=== PATIENT | male | born 1985 | race Caucasian/White ===

== ENCOUNTER 2017-11-20 13:07 | Emergency (ER) | payer OTHER ==
[~2017-11-20] VITALS: Ht 175.3 cm; Wt 70.8 kg
[2017-11-20 13:11] VITALS: BP 121/72
[2017-11-20] MEDS ORDERED: KETOROLAC TROMETHAMINE INJ 30 MG/ML VIAL ONE (13:28)
[2017-11-20] MEDS ORDERED: METOCLOPRAMIDE HCL 10 MG/2 ML VIAL ONE (13:28)
[2017-11-20] MEDS ORDERED: diphenhydrAMINE HCL 50 MG/ML VIAL ONE (13:28)
[2017-11-20] MEDS ORDERED: IV NS 0.9% 250 ML BAG IV ONE (13:30)
[2017-11-20] MEDS ORDERED: diphenhydrAMINE HCL 50 MG/ML VIAL IV ONE (13:30)
[2017-11-20] MEDS ORDERED: KETOROLAC TROMETHAMINE INJ 30 MG/ML VIAL IV ONE (13:30)
[2017-11-20] MEDS ORDERED: METOCLOPRAMIDE HCL 10 MG/2 ML VIAL IV ONE (13:30)
== END 2017-11-20 15:11 | disposition home or self-care (01) ==
LOC: ER 13:11
DX: H66.91 Otitis media, unspecified, right ear (principal); J32.9 Chronic sinusitis, unspecified
CPT/HCPCS: 71046; A4606; J1200; J1885; J2765; J7050; Z7610

== ENCOUNTER 2020-09-20 11:17 | Emergency (ER) | payer OTHER ==
[~2020-09-20] VITALS: Ht 167.6 cm; Wt 70.3 kg
[2020-09-20 11:24] VITALS: BP 115/72
--- NOTE | 2020-09-20 12:00 | NUR ---
Pt awaiting MD update and disposition
[2020-09-20] MEDS ORDERED: IBUP-1957 PO (12:59)
--- NOTE | 2020-09-20 13:09 | NUR ---
Patient discharged to home in stable condition. Written and verbal after care instructions given. Patient verbalizes understanding of instruction.
== END 2020-09-20 13:11 | disposition home or self-care (01) ==
LOC: ER 11:25
DX: S40.022A Contusion of left upper arm, initial encounter (principal); W18.39XA Other fall on same level, initial encounter; Y93.66 Activity, soccer; Y92.322 Soccer field as the place of occurrence of the external cause; Y99.8 Other external cause status
CPT/HCPCS: 73110